=== PATIENT | female | born 1945 | race Caucasian/White ===

== ENCOUNTER 2023-01-10 11:57 | Outpatient (CLI) | payer BC | END 2023-01-10 11:58 | disposition short-term general hospital (02) | LOC: EMS 11:57 | DX: S79.912A Unspecified injury of left hip, initial encounter (principal); W18.39XA Other fall on same level, initial encounter; Y93.K1 Activity, walking an animal; Y92.410 Unspecified street and highway as the place of occurrence of the external cause | CPT/HCPCS: A0425; A0429 ==